=== PATIENT | male | born 1965 | race Caucasian/White ===

== ENCOUNTER 2016-12-14 19:47 | Emergency (ER) | payer MEDICARE, OTHER ==
[~2016-12-14 19:47] MED LIST: levemir SQ
[2016-12-14 19:59] VITALS: BP 147/74; PULSE 84; RESP 18; TEMP 98.5
[2016-12-14 20:15] VITALS: O2SAT 96
[2016-12-14] MEDS ORDERED: SODIUM CHLORIDE 0.9% FLUSH 5 ML FLUSH IVF PRN (20:15)
[2016-12-14] MEDS ORDERED: ASPIRIN 81 MG CHEW TAB PO ONE (20:15)
[2016-12-14] MEDS ORDERED: LEVEMIR SQ (20:26)
[2016-12-14 20:50] LABS: AUTOMATED NEUTROPHIL # 4.3 TH/MM3 (1.8-7.7); BASOPHIL % 0.5 % (0.0-2.0); EOSINOPHIL # 0.2 TH/MM3 (0-0.4); EOSINOPHIL % 3.4 % (0.0-4.0); HEMO FLAGS DIFF FINAL; LYMPH % 23.7 % (9.0-44.0); LYMPHOCYTE # 1.6 TH/MM3 (1.0-4.8); MEAN CELL VOLUME 86.2 FL (80.0-100.0); MEAN CORPUSCULAR HEMOGLOBIN 29.5 PG (27.0-34.0); MEAN CORPUSCULAR HGB CONC 34.2 % (32.0-36.0); MONO % 7.4 % (0.0-8.0); PLATELET COUNT 235 TH/MM3 (150-450); RED BLOOD COUNT 4.41 MIL/MM3 (4.50-5.90); RED CELL DISTRIBUTION WIDTH 13.1 % (11.6-17.2); WHITE BLOOD COUNT 6.6 TH/MM3 (4.0-11.0)
[2016-12-14 21:00] LABS: APTT (PATIENT) 25.9 SEC (24.3-30.1); PROTHROMBIN TIME - PATIENT 11.2 SEC (9.8-11.6)
--- NOTE | 2016-12-14 21:00 | RADRPT ---
EXAM DATE/TIME: 12/14/2016 20:25 [facility] COMPARISON: No previous studies available for comparison. INDICATIONS : Chest pain starting today MEDICAL HISTORY : None. SURGICAL HISTORY : None. ENCOUNTER: Initial ACUITY: 1 day PAIN SCORE: 10/10 LOCATION: Left chest FINDINGS: PA and lateral views of the chest demonstrate the lungs to be symmetrically aerated without evidence of mass, infiltrate or effusion. The cardiomediastinal contours are unremarkable. Osseous structure s are intact. CONCLUSION: No acute disease. Josias Diaz MD on December 14, 2016 at 20:59 Board Certified Radiologist. This report was verified electronically.
[2016-12-14 21:08] LABS: ANION GAP 9 MEQ/L (5-15); AST (GOT) 16 U/L (15-37); BICARBONATE 28.4 MEQ/L (21.0-32.0); BLOOD UREA NITROGEN 20 MG/DL (7-18); CHLORIDE 98 MEQ/L (98-107); GLOMERULAR FILTRATION RATE 42 ML/MIN (>89); MAGNESIUM 1.7 MG/DL (1.5-2.5); POTASSIUM 3.2 MEQ/L (3.5-5.1); SODIUM (NA) 135 MEQ/L (136-145)
[2016-12-14 21:12] LABS: ALKALINE PHOSPHATASE 53 U/L (45-117); ALT (GPT) 24 U/L (12-78); CREATINE KINASE 135 U/L (39-308); TOTAL BILIRUBIN ADULT 0.5 MG/DL (0.2-1.0)
[2016-12-14] MEDS ORDERED: SODIUM CHLOR 0.9% 1000 ML INJ 1,000 ML IV ONE (21:15)
[2016-12-14 21:26] LABS: CKMB 2.6 NG/ML (0.5-3.6)
[2016-12-14 21:30] VITALS: BP 137/69; PULSE 73; RESP 26; O2SAT 96
[2016-12-14] MEDS ORDERED: INSULIN HUMAN REGULAR 1,000 UNITS/10 ML VIAL SQ ONE (21:45)
--- NOTE | 2016-12-14 21:51 | EKG ---
Date Performed: 12/14/2016 Time Performed: 18:57:49 PTAGE: 51 years EKG: Sinus rhythm MODERATE INTRAVENTRICULAR CONDUCTION DELAY BORDERLINE ECG NO SIGNIFICANT CHANGE FROM PRIOR ELECTROCA RDIOGRAM. NO PREVIOUS TRACING DOCTOR: Juan Manuel Shea Interpretating Date/Time 12/14/2016 21:48:51
--- NOTE | 2016-12-14 22:25 | PD ---
HPI Chief Complaint: Chest Pain Time Seen by Provider: 20:01 Travel History International Travel<30 days: No Contact w/Intl Traveler<30days: No Traveled to known affect area: No History of Present Illness HPI Patient is a 51-year-old male with history of NH who comes in complaining of chest pain. He says he is up and walking around all day, working a jimenez at [employer], and for the past 2 hours he has been having on and off chest pain. He says it is associated with some shortness of breath, and the pain radiates down his left arm. He said he had pain similar to this when he had his NH in May. She also reports some leg swelling, and feeling of dry mouth. He has history of diabetes, and says he has not been taking his nighttime medications due to working. PFSH Past Medical History Arthritis: Yes Asthma: Yes Anxiety: Yes Cardiovascular Problems: Yes (NH AND STENTS) COPD: Yes Diabetes: Yes Patient Takes Glucophage: Yes Diminished Hearing: No Past Surgical History Coronary Stent: Yes Social History Alcohol Use: No Tobacco Use: No Substance Use: No Allergies-Medications (Allergen,Severity, Reaction): Coded Allergies: HMG-CoA Reductase Inhibitors (Verified Allergy, Intermediate, 12/14/16) LIP SWELLING Gabapentin (Verified Adverse Reaction, Mild, 12/14/16) Reported Meds & Prescriptions Reported Meds & Active Scripts Active Reported Levemir Inj (Insulin Detemir) 1,000 unit/ 10 ML Vial 38 Units SQ BID Do not mix with any other Insulin. Review of Systems Except as stated in HPI: all other systems reviewed are Neg General / Constitutional: No: Fever, Chills Eyes: No: Blurred Vision HENT: No: Headaches, Lightheadedness Cardiovascular: Positive: Chest Pain or Discomfort Respiratory: Positive: Shortness of Breath, No: Cough Gastrointestinal: No: Abdominal Pain Musculoskeletal: Positive: Edema Skin: No Rash, No Change in Pigmentation Neurologic: No: Weakness, Dizziness Physical Exam Narrative GENERAL: Awake and alert, in no acute distress. SKIN: Warm and dry. HEAD: Atraumatic. Normocephalic. EYES: Pupils equal and round. No scleral icterus. ENT: Mucous membranes pink and moist. NECK: Trachea midline. No JVD. CARDIOVASCULAR: Regular rate and rhythm. No murmur appreciated. RESPIRATORY: No accessory muscle use. Clear to auscultation. Breath sounds equal bilaterally. GASTROINTESTINAL: Abdomen soft, non-tender, nondistended. MUSCULOSKELETAL: No obvious deformities. No clubbing. No cyanosis. No edema. NEUROLOGICAL: Awake and alert. No obvious cranial nerve deficits. Motor grossly within normal limits. Normal speech. PSYCHIATRIC: Appropriate mood and affect; insight and judgment normal. Data Data Last Documented VS Vital Signs Date Time Temp Pulse Resp B/P Pulse Ox O2 Delivery O2 Flow Rate FiO2 12/14/16 21:30 73 26 137/69 96 Room Air 12/14/16 19:59 98.5 Orders Ckmb (Isoenzyme) Profile (12/14/16 20:03) Complete Blood Count With Diff (12/14/16 20:03) Comprehensive Metabolic Panel (12/14/16 20:03) Magnesium (Mg) (12/14/16 20:03) Prothrombin Time / Inr (Pt) (12/14/16 20:03) Act Partial Throm Time (Ptt) (12/14/16 20:03) Troponin I (12/14/16 20:03) Ecg Monitoring (12/14/16 20:03) Bilateral Bp Monitoring (12/14/16 20:03) Iv Access Insert/Monitor (12/14/16 20:03) Oximetry (12/14/16 20:03) Oxygen Administration (12/14/16 20:03) Aspirin Chew (Aspirin Chew) (12/14/16 20:15) Sodium Chloride 0.9% Flush (Ns Flush) (12/14/16 20:15) Chest, Pa & Lat (12/14/16 20:03) B-Type Natriuretic Peptide (12/14/16 20:14) Sodium Chlor 0.9% 1000 Ml Inj (Ns 1000 M (12/14/16 21:15) CKMB (12/14/16 20:14) CKMB% (12/14/16 20:14) Electrocardiogram (12/14/16 18:57) Insulin Human Regular Inj (Novolin R Inj (12/14/16 21:45) Labs Laboratory Tests Test 12/14/16 20:14 White Blood Count 6.6 TH/MM3 Red Blood Count 4.41 MIL/MM3 Hemoglobin 13.0 GM/DL Hematocrit 38.0 % Mean Corpuscular Volume 86.2 FL Mean Corpuscular Hemoglobin 29.5 PG Mean Corpuscular Hemoglobin 34.2 % Concent Red Cell Distribution Width 13.1 % Platelet Count 235 TH/MM3 Mean Platelet Volume 8.9 FL Neutrophils (%) (Auto) 65.0 % Lymphocytes (%) (Auto) 23.7 % Monocytes (%) (Auto) 7.4 % Eosinophils (%) (Auto) 3.4 % Basophils (%) (Auto) 0.5 % Neutrophils # (Auto) 4.3 TH/MM3 Lymphocytes # (Auto) 1.6 TH/MM3 Monocytes # (Auto) 0.5 TH/MM3 Eosinophils # (Auto) 0.2 TH/MM3 Basophils # (Auto) 0.0 TH/MM3 CBC Comment DIFF FINAL Differential Comment Prothrombin Time 11.2 SEC Prothromb Time International 1.0 RATIO Ratio Activated Partial 25.9 SEC Thromboplast Time Sodium Level 135 MEQ/L Potassium Level 3.2 MEQ/L Chloride Level 98 MEQ/L Carbon Dioxide Level 28.4 MEQ/L Anion Gap 9 MEQ/L Blood Urea Nitrogen 20 MG/DL Creatinine 1.72 MG/DL Estimat Glomerular Filtration 42 ML/MIN Rate Random Glucose 368 MG/DL Calcium Level 8.6 MG/DL Magnesium Level 1.7 MG/DL Total Bilirubin 0.5 MG/DL Aspartate Amino Transf 16 U/L (AST/SGOT) Alanine Aminotransferase 24 U/L (ALT/SGPT) Alkaline Phosphatase 53 U/L Total Creatine Kinase 135 U/L Creatine Kinase MB 2.6 NG/ML Troponin I LESS THAN 0.02 NG/ML B-Type Natriuretic Peptide 11 PG/ML Total Protein 7.0 GM/DL Albumin 3.7 GM/DL [facility] Medical Decision Making Medical Screen Exam Complete: Yes Emergency Medical Condition: Yes Medical Record Reviewed: Yes Interpretation(s) ECG shows normal sinus rhythm at 86, no ST elevation or depression. Differential Diagnosis ACS versus NSTEMI versus STEMI Narrative Course Patient is a 51-year-old male who comes in complaining of chest pain. Exam shows no acute abnormalities. IV established, patient connected to the automotive glass mechanic. Labs sent, patient given aspirin. Labs show a glucose of 368 and a creatinine of 1.72. Patient given IV fluids as well as insulin. Patient advised of the results. Troponin is negative. I spoke with the patient and advised that he should stay for observation to rule out an NH. I explained to him that it can take hours for abnormal results to occur when having a heart attack. To the patient that he could go home and of a massive heart attack tonight in his sleep. I advised she could become very sick and not make it back to the hospital. Patient is a note 4. He verbalized understanding of these risks and decided to sign out AGAINST MEDICAL ADVICE. AMA: The risks of leaving against medical advice without further evaluation treatment were discussed with the patient. These risks include cardiac dysfunction, cardiac dysrhythmia, possible heart attack, possible stroke or . The patient indicated understanding of these risks and appeared to have the capacity to make this decision. Patient advised follow-up with his doctors and return immediately for any worsening symptoms. Diagnosis Primary Impression: Chest pain Qualified Code: R07.9 - Chest pain, unspecified type Disposition: 07 AGAINST MEDICAL ADVICE Condition: Stable Lianne Bright MD Dec 14, 2016 22:25
== END 2016-12-14 22:33 | disposition left against medical advice (07) ==
LOC: NEPA 19:47
DX: R07.9 Chest pain, unspecified (principal); R06.02 Shortness of breath; M79.602 Pain in left arm; R94.31 Abnormal electrocardiogram [ECG] [EKG]; I25.2 Old myocardial infarction; R22.40 Localized swelling, mass and lump, unspecified lower limb; E11.9 Type 2 diabetes mellitus without complications; Z53.20 Procedure and treatment not carried out because of patient's decision for unspecified reasons; Z79.4 Long term (current) use of insulin; Z87.39 Personal history of other diseases of the musculoskeletal system and connective tissue; Z87.09 Personal history of other diseases of the respiratory system; Z86.59 Personal history of other mental and behavioral disorders; Z86.79 Personal history of other diseases of the circulatory system
CPT/HCPCS: 71020; 80053; 82550; 82552; 83735; 83880; 84484; 85025; 85610; 85730; 93005; 96360; 99285; J7030

== ENCOUNTER 2017-09-26 20:31 | Emergency (ER) | payer OTHER ==
[~2017-09-26] VITALS: Ht 185.4 cm; Wt 133.0 kg
[~2017-09-26 20:31] MED LIST changes: +LEVEMIR SQ; -levemir SQ
[2017-09-26 20:34] VITALS: BP 183/79; PULSE 81; RESP 18; TEMP 97.8; O2SAT 98
[2017-09-26] MEDS ORDERED: KETOROLAC TROMETHAMINE 60 MG/2 ML (IM) VIAL IM ONE (21:00)
--- NOTE | 2017-09-26 21:14 | PD ---
HPI Chief Complaint: Fall Time Seen by Provider: 20:51 Travel History International Travel<30 days: No Contact w/Intl Traveler<30days: No Traveled to known affect area: No History of Present Illness HPI The patient is a 51-year-old male that fell yesterday and hurt his right hip. The patient has L3, 4, 5 disc disease and gets epidurals for this chronic pain. He states that he gets numbness on his right leg and has been falling more often since the epidurals. He complains of pain medial to the greater trochanter area of the right hip. He has been bearing weight and walking around on this but it is painful to abduct his right hip. The patient is noncompliant on his diabetic medicines, he does not take the Tuojeo correctly because he states he forgets it. He has not taken his Tuojeo for about a week. His last epidural shot was one week before and this likely contained Decadron. PFSH Past Medical History Arthritis: Yes Asthma: Yes Anxiety: Yes Cardiovascular Problems: Yes (NE AND STENTS) COPD: Yes Diabetes: Yes Diminished Hearing: No ?: Not Past Surgical History Coronary Stent: Yes Social History Alcohol Use: No Tobacco Use: No Substance Use: No Allergies-Medications (Allergen,Severity, Reaction): Coded Allergies: amlodipine (Unverified Allergy, Intermediate, 05/14/17) LIP SWELLING atorvastatin (Unverified Allergy, Intermediate, 05/14/17) LIP SWELLING pravastatin (Unverified Allergy, Intermediate, 05/14/17) LIP SWELLING simvastatin (Unverified Allergy, Intermediate, 05/14/17) LIP SWELLING gabapentin (Unverified Adverse Reaction, Mild, 05/14/17) Reported Meds & Prescriptions Reported Meds & Active Scripts Active Reported Quinten Mahoney Pen Inj (Insulin Glargine) 300 Unit/Ml Pen 1 Units SQ [place] (Hydrocodone-Acetaminophen) 10-325 Mg Tab 1 Tab PO Q6H PRN Tizanidine (Tizanidine HCl) 2 Mg Cap 2 Mg PO TID Ranitidine (Ranitidine HCl) 300 Mg Tab 300 Mg PO HS Omeprazole 40 Mg Cap 40 Mg PO DAILY Metformin (Metformin HCl) 1,000 Mg Tab 1,000 Mg PO BIDPC Gabapentin 300 Mg Cap 300 Mg PO HS Losartan (Losartan Potassium) 100 Mg Tab 100 Mg PO DAILY Triamterene-Hydrochlorothiazide 37.5-25 Mg Cap 1 Cap PO DAILY Atenolol 50 Mg Tab 50 Mg PO DAILY Montelukast (Montelukast Sodium) 10 Mg Tab 10 Mg PO HS Aspirin 81 Mg Chew 81 Mg CHEW DAILY Aleve (Naproxen Sodium) 220 Mg Capsule Vitamin D3 (Cholecalciferol) 5,000 Unit Cap 5,000 Units PO DAILY Review of Systems Except as stated in HPI: all other systems reviewed are Neg Physical Exam Narrative GENERAL: Well-nourished, alert and oriented, obese patient in slight apparent distress with his right hip discomfort. His vital signs show blood pressure 183 /79 but otherwise normal. SKIN: Focused skin assessment warm/dry. HEAD: Normocephalic. EYES: No scleral icterus. No injection or drainage. NECK: Supple, trachea midline. No JVD or lymphadenopathy. CARDIOVASCULAR: Regular rate and rhythm without murmurs, gallops, or rubs. RESPIRATORY: Breath sounds equal bilaterally. No accessory muscle use. GASTROINTESTINAL: Abdomen soft, non-tender, nondistended. MUSCULOSKELETAL: No cyanosis, or edema. There is tenderness over the muscle attachments to the abductors of the right hip. No deformity is noted. BACK: Nontender without obvious deformity. No CVA tenderness. Data Data Last Documented VS Vital Signs Date Time Temp Pulse Resp B/P (MAP) Pulse Ox O2 Delivery O2 Flow Rate FiO2 09/26/17 22:36 84 16 147/78 (101) 98 Room Air 09/26/17 20:34 97.8 Orders Orders Ketorolac Inj (Toradol Inj) (09/26/17 21:00) Pelvis, Ap Only (Routine) (09/26/17 20:58) Insulin Human Regular Inj (Novolin R Inj (09/26/17 21:15) Complete Blood Count With Diff (09/26/17 21:41) Comprehensive Metabolic Panel (09/26/17 21:41) Sodium Chlor 0.9% 1000 Ml Inj (Ns 1000 M (09/26/17 21:45) Urinalysis - C+S If Indicated (09/26/17 21:44) Insulin Human Regular Inj (Novolin R Inj (09/26/17 22:45) Labs Laboratory Tests Test 09/26/17 19:58 09/26/17 21:58 White Blood Count 8.1 TH/MM3 Red Blood Count 4.96 MIL/MM3 Hemoglobin 14.4 GM/DL Hematocrit 44.5 % Mean Corpuscular Volume 89.8 FL Mean Corpuscular Hemoglobin 29.1 PG Mean Corpuscular Hemoglobin Concent 32.4 % Red Cell Distribution Width 13.1 % Platelet Count 315 TH/MM3 Mean Platelet Volume 8.3 FL Neutrophils (%) (Auto) 77.2 % Lymphocytes (%) (Auto) 16.5 % Monocytes (%) (Auto) 5.2 % Eosinophils (%) (Auto) 0.8 % Basophils (%) (Auto) 0.3 % Neutrophils # (Auto) 6.3 TH/MM3 Lymphocytes # (Auto) 1.3 TH/MM3 Monocytes # (Auto) 0.4 TH/MM3 Eosinophils # (Auto) 0.1 TH/MM3 Basophils # (Auto) 0.0 TH/MM3 CBC Comment DIFF FINAL Differential Comment Urine Color YELLOW Urine Turbidity CLEAR Urine pH 6.0 Urine Specific [place] 1.031 Urine Protein NEG mg/dL Urine Glucose (UA) 1000 OR GREATER mg/dL Urine Ketones NEG mg/dL Urine Occult Blood NEG Urine Nitrite NEG Urine Bilirubin NEG Urine Leukocyte Esterase NEG Urine Squamous Epithelial Cells 0-5 /hpf Microscopic Urinalysis Comment CULT NOT INDICATED Blood Urea Nitrogen 20 MG/DL Creatinine 1.60 MG/DL Random Glucose 520 MG/DL Total Protein 7.1 GM/DL Albumin 3.7 GM/DL Calcium Level 8.9 MG/DL Alkaline Phosphatase 100 U/L Aspartate Amino Transf (AST/SGOT) 8 U/L Alanine Aminotransferase (ALT/SGPT) 23 U/L Total Bilirubin 0.4 MG/DL Sodium Level 132 MEQ/L Potassium Level 4.2 MEQ/L Chloride Level 96 MEQ/L Carbon Dioxide Level 25.7 MEQ/L Anion Gap 10 MEQ/L Estimat Glomerular Filtration Rate 46 ML/MIN [facility] Medical Decision Making Medical Screen Exam Complete: Yes Emergency Medical Condition: Yes Medical Record Reviewed: Yes Interpretation(s) The Accu-Chek is 416 one half hour after giving 15 units of insulin. The initial blood sugar is 520. The GFR is 46 and the creatinine is 1.2 and the BUN is 20 in the sodium is 132 but the rest of the complete metabolic profile is unremarkable. The urinalysis shows 1000 or greater glucose but is otherwise normal and culture is not indicated. The specific gravity is 1.031. The CBC is normal. X-rays of the pelvis, AP only are unremarkable. Differential Diagnosis Fracture pelvis, fractured hip, avulsed and fracture pelvis, muscle strain right hip abductors, diabetes mellitus poor control, noncompliance to medications Narrative Course The patient states that tizanidine that he has at home helps a little bit. He has menthol patches that he puts on that helpful little bit. He is told he may want to try a heating pad turned on its lowest setting and interposing a towel between his skin and the pad. He should also try ice packs as this may come down the inflammation. He is already on steroids from the epidural injections and adding nonsteroidal anti-inflammatory may be dangerous. He is to take his diabetes medication correctly. Impression: Hyperglycemia from noncompliance to medications, muscle strain right hip Diagnosis Primary Impression: Strain of muscle of right hip Additional Impressions: Hyperglycemia Noncompliance with medication regimen Disposition: 01 DISCHARGE HOME Condition: Stable Regan Davenport MD Sep 26, 2017 21:14
[2017-09-26] MEDS ORDERED: INSULIN HUMAN REGULAR 1,000 UNITS/10 ML VIAL IV PUSH ONE ×2 (21:15→22:45)
[2017-09-26] MEDS ORDERED: MONT10TA4 PO (21:36)
[2017-09-26] MEDS ORDERED: HYDR-3366 PO (21:36)
[2017-09-26] MEDS ORDERED: OMEP40CA2 PO (21:36)
[2017-09-26] MEDS ORDERED: LOSA100T PO (21:36)
[2017-09-26] MEDS ORDERED: METF1000 PO (21:36)
[2017-09-26] MEDS ORDERED: NAPR220C22 (21:36)
[2017-09-26] MEDS ORDERED: ATEN50TA PO (21:36)
[2017-09-26] MEDS ORDERED: CHOL5000 PO (21:36)
[2017-09-26] MEDS ORDERED: TIZA2CAP3 PO (21:36)
[2017-09-26] MEDS ORDERED: TRIA37.53 PO (21:36)
[2017-09-26] MEDS ORDERED: RANI300T PO (21:36)
[2017-09-26] MEDS ORDERED: GABA300C5 PO (21:36)
[2017-09-26] MEDS ORDERED: INSU1.2I SQ (21:36)
[2017-09-26] MEDS ORDERED: ASPI-516 CHEW (21:36)
[2017-09-26 21:44] VITALS: BP 150/80; PULSE 77; RESP 16; O2SAT 97
[2017-09-26] MEDS ORDERED: SODIUM CHLOR 0.9% 1000 ML INJ 1,000 ML IV SCH (21:45)
--- NOTE | 2017-09-26 21:54 | RADRPT ---
EXAM DATE/TIME: 09/26/2017 21:19 [facility] COMPARISON: No previous studies available for comparison. INDICATIONS : Fall two days ago. Pain in right hip. MEDICAL HISTORY : None. SURGICAL HISTORY : Cardiac cath, Cardiac stent. ENCOUNTER: Initial ACUITY: 2 days PAIN SCORE: 8/10 LOCATION: Right Hip FINDINGS: A single frontal view of the pelvis demonstrates no evidence of fracture. The bony pelvic ring is in tact. Bony mineralization is normal. The soft tissues are intact. CONCLUSION: Unremarkable examination of the pelvis. Marcellus Jim MD on September 26, 2017 at 21:52 Board Certified Radiologist. This report was verified electronically.
[2017-09-26 22:01] LABS: BILIRUBIN, URINE NEG (NEG); BLOOD, URINE NEG (NEG); GLUCOSE,URINE 1000 OR GREATER mg/dL (NEG); KETONE, URINE NEG (NEG); NITRITE,URINE NEG (NEG); URINE LEUKOCYTE ESTERASE NEG (NEG)
[2017-09-26 22:02] LABS: AUTOMATED NEUTROPHIL # 6.3 TH/MM3 (1.8-7.7); BASOPHIL % 0.3 % (0.0-2.0); EOSINOPHIL # 0.1 TH/MM3 (0-0.4); EOSINOPHIL % 0.8 % (0.0-4.0); HEMATOCRIT 44.5 % (39.0-51.0); HEMOGLOBIN 14.4 GM/DL (13.0-17.0); LYMPH % 16.5 % (9.0-44.0); LYMPHOCYTE # 1.3 TH/MM3 (1.0-4.8); MEAN CELL VOLUME 89.8 FL (80.0-100.0); MEAN CORPUSCULAR HEMOGLOBIN 29.1 PG (27.0-34.0); MEAN CORPUSCULAR HGB CONC 32.4 % (32.0-36.0); MEAN PLATELET VOLUME 8.3 FL (7.0-11.0); MONO % 5.2 % (0.0-8.0); MONOCYTE # 0.4 TH/MM3 (0-0.9); NEUT % 77.2 % (16.0-70.0); PLATELET COUNT 315 TH/MM3 (150-450); RED BLOOD COUNT 4.96 MIL/MM3 (4.50-5.90); RED CELL DISTRIBUTION WIDTH 13.1 % (11.6-17.2); WHITE BLOOD COUNT 8.1 TH/MM3 (4.0-11.0)
[2017-09-26 22:07] LABS: SQUAMOUS EPITHELIAL CELL URINE 0-5 /hpf (0-5); URINE COLOR YELLOW (YELLW/STRAW)
[2017-09-26 22:08] LABS: CHLORIDE 96 MEQ/L (98-107); SODIUM (NA) 132 MEQ/L (136-145)
[2017-09-26 22:12] LABS: ALBUMIN 3.7 GM/DL (3.4-5.0); BICARBONATE 25.7 MEQ/L (21.0-32.0); CALCIUM 8.9 MG/DL (8.5-10.1)
[2017-09-26 22:13] LABS: BLOOD UREA NITROGEN 20 MG/DL (7-18)
[2017-09-26 22:15] LABS: ALT (GPT) 23 U/L (12-78)
[2017-09-26 22:16] LABS: AST (GOT) 8 U/L (15-37); GLOMERULAR FILTRATION RATE 46 ML/MIN (>89)
[2017-09-26 22:17] LABS: TOTAL BILIRUBIN ADULT 0.4 MG/DL (0.2-1.0); TOTAL PROTEIN 7.1 GM/DL (6.4-8.2)
[2017-09-26 22:18] LABS: ALKALINE PHOSPHATASE 100 U/L (45-117)
[2017-09-26 22:19] LABS: GLUCOSE,RANDOM 520 MG/DL (74-106)
[2017-09-26 22:36] VITALS: BP 147/78; PULSE 84; RESP 16; O2SAT 98
[2017-09-26 22:44] VITALS: BP 152/84; PULSE 80; RESP 16; O2SAT 97
[2017-09-26 22:57] VITALS: RESP 16
[2017-09-26 23:31] VITALS: BP 133/78
== END 2017-09-26 23:41 | disposition home or self-care (01) ==
LOC: PHED 20:31
DX: S76.011A Strain of muscle, fascia and tendon of right hip, initial encounter (principal); E11.65 Type 2 diabetes mellitus with hyperglycemia; Z91.14 Patient's other noncompliance with medication regimen; J44.9 Chronic obstructive pulmonary disease, unspecified; M19.90 Unspecified osteoarthritis, unspecified site; G89.29 Other chronic pain; I25.2 Old myocardial infarction; Z79.4 Long term (current) use of insulin; W19.XXXA Unspecified fall, initial encounter
CPT/HCPCS: 72170; 80053; 81001; 85025; 96361; 96372; 96374; 96376; 99284; J1815; J1885; J7030